=== PATIENT | male | born 1950 | race Caucasian/White ===

== ENCOUNTER 2020-03-20 22:00 | Inpatient (IN) | payer MEDICARE ==
[~2020-03-20] VITALS: Ht 177.8 cm; Wt 80.7 kg
[2020-03-21] VITALS (7 sets, daily range): BP systolic 118–141; BP diastolic 46–57
[2020-03-21] MEDS ORDERED: ALLOPURINOL100 MG PEG (02:25)
[2020-03-21] MEDS ORDERED: FERROUS SULFAT325 M1 PEG (02:36)
[2020-03-21] MEDS ORDERED: AMLODIPINE BESY10 MG PEG (02:36)
[2020-03-21] MEDS ORDERED: AMIODARONE HCL200 MG PEG (02:36)
[2020-03-21] MEDS ORDERED: ARANESP100 MCG/0. PEG (02:36)
[2020-03-21] MEDS ORDERED: ASPIRIN81 MG PEG (02:36)
[2020-03-21] MEDS ORDERED: ATORVASTATIN CA20 MG PEG (02:36)
[2020-03-21] MEDS ORDERED: PROTONIX20 MG PEG (02:44)
[2020-03-21] MEDS ORDERED: RENVELA0.8 GM PO (02:44)
[2020-03-21] MEDS ORDERED: FUROSEMIDE40 MG/4 ML IV (02:44)
[2020-03-21] MEDS ORDERED: MUPIROCIN22 GM TOP (02:44)
[2020-03-21] MEDS ORDERED: GABAPENTIN300 MG PEG (02:44)
[2020-03-21] MEDS ORDERED: GENTEAL TEARS 015 ML OU (02:44)
[2020-03-21] MEDS ORDERED: SERTRALINE HCL100 MG PEG (02:48)
[2020-03-21] MEDS ORDERED: VITAMIN B-121000 MCG PEG (02:48)
[2020-03-21] MEDS ORDERED: COMBIVENT RESPIM4 GM IH (02:48)
[2020-03-21] MEDS ORDERED: ACETYLCYST200 MG/1 M INH (02:48)
[2020-03-21] MEDS ORDERED: SANDOSTATIN0.1 MG/ML INJ (02:48)
[2020-03-21] MEDS ORDERED: OBREDON 2.5-20118 ML PO (02:55)
[2020-03-21] MEDS ORDERED: NORCO 5-325 TA1 EACH PEG (02:55)
[2020-03-21] MEDS ORDERED: ACETAMINOP325 MG/10 PEG (02:55)
[2020-03-21] MEDS ORDERED: MORPHINE S10 MG/1 M1 IV (02:58)
[2020-03-21] MEDS ORDERED: NITROSTAT0.4 MG SL (02:58)
[2020-03-21] MEDS ORDERED: ONDANSETRON2 MG/1 ML IV (02:58)
[2020-03-21] MEDS ORDERED: NITROGLYCERIN 0.4 MG SUBL SL SCH (03:45)
[2020-03-21] MEDS ORDERED: HYDROCODONE/APAP 5MG-325MG TAB PEG PRN (03:45)
[2020-03-21] MEDS ORDERED: DARBEPOETIN ALFA IN POLYSORBAT 100 MCG PEG SCH (03:45)
[2020-03-21] MEDS ORDERED: ACETAMINOPHEN 325 MG/10 ML UDC PEG PRN (03:45)
[2020-03-21] MEDS ORDERED: PANTOPRAZOLE SOD 40 MG TABEC PO SCH ×2 (03:45→04:15)
[2020-03-21] MEDS ORDERED: GUAIFENESIN/CODEINE 10 ML CUP PO PRN (03:45)
[2020-03-21] MEDS ORDERED: MORPHINE SULFATE INJ 4 MG/ML INJ 1ML IV PRN (04:00)
[2020-03-21] MEDS ORDERED: PROTONIX40 MG/ML PO (04:05)
[2020-03-21] MEDS: ONDANSETRON HCL INJ 2MG/ML 2ML 2 MG/ML VIAL IV SCH ×3 (05:33→17:44)
[2020-03-21] MEDS: IPRATROPIUM/ALBUTEROL SULFATE 4 GM INH INH SCH ×6 (06:00→23:15)
[2020-03-21] MEDS ORDERED: ACETYLCYSTEINE 20% INHAL SOLN 30 ML VIAL INH SCH (06:00)
[2020-03-21 06:55] LABS: BASOPHILS # (AUTO) 0.1 (0.0-0.1); BASOPHILS % 0.9 % (0.0-1.0); EOSINOPHILS % 33.4 % (0.0-6.0); HEMATOCRIT 22.7 % (38.2-49.6); LYMPHOCYTES # (AUTO) 0.7 (1.0-3.2); LYMPHOCYTES % 7.3 % (18.0-39.1); MEAN CORPUSCULAR HEMOGLOBIN 30.3 pg (28-32); MEAN CORPUSCULAR HGB CONC 30.4 g/dL (31-35); MEAN CORPUSCULAR VOLUME 99.6 fL (81-99); MONOCYTES # (AUTO) 0.5 (0.2-0.8); MONOCYTES % 5.9 % (4.4-11.3); NEUTROPHILS # (AUTO) 4.6 (2.1-6.9); PLATELET COUNT 197 x10e3/uL (140-360); RED BLOOD COUNT 2.28 x10e6/uL (4.3-5.7); RED CELL DISTRIBUTION WIDTH 18.3 % (11.7-14.4)
[2020-03-21 06:56] LABS: HEMOGLOBIN 6.9 g/dL (14.0-18.0)
[2020-03-21] MEDS: PANTOPRAZOLE SODIUM 40 MG SUSPDR.PKT PO SCH ×2 (07:22→22:23)
[2020-03-21] MEDS: SEVELAMER CARBONATE 800 MG TAB PO SCH ×3 (07:22→16:04)
[2020-03-21 07:24] LABS: ANION GAP 16.1 mmol/L (8-16); CALCIUM 8.6 mg/dL (8.4-10.2); CREATININE, SERUM 3.63 mg/dL (0.72-1.25); POTASSIUM 5.1 mmol/L (3.5-5.1)
[2020-03-21] MEDS ORDERED: SODIUM CHLORIDE 0.9% 250ML 250 ML IV SCH (07:30)
[2020-03-21] MEDS ORDERED: SEVELAMER CARBONATE 800 MG TAB PO SCH (08:00)
[2020-03-21] MEDS: GABAPENTIN 300 MG CAP PEG SCH (09:00)
[2020-03-21] MEDS: AMLODIPINE BESYLATE 10 MG TAB PEG SCH (09:00)
[2020-03-21] MEDS: FERROUS SULFATE 325 MG TAB PEG SCH ×2 (09:00→16:03)
[2020-03-21] MEDS: SERTRALINE HCL 100 MG TAB PEG SCH (09:00)
[2020-03-21] MEDS ORDERED: OCTREOTIDE ACETATE 0.1 MG/ML 100MCG AMP INJ SCH (09:00)
[2020-03-21] MEDS: CYANOCOBALAMIN 1,000 MCG TAB PEG SCH (09:00)
[2020-03-21] MEDS: ALLOPURINOL 100 MG TAB PEG SCH (09:00)
[2020-03-21] MEDS: MUPIROCIN 2% OINT 22 GM TUBE TOP SCH ×3 (09:00→16:23)
[2020-03-21] MEDS ORDERED: ASPIRIN 81 MG CHEW TAB PEG SCH (09:00)
[2020-03-21] MEDS: AMIODARONE HCL 200 MG TAB PEG SCH (09:00)
[2020-03-21 09:19] LABS: ANISOCYTOSIS SLIGHT; EOSINOPHILS % (MANUAL) 26 % (0-7); LYMPHOCYTES % (MANUAL) 9 % (19-48); MONOCYTES % (MANUAL) 6 % (3.4-9.0); NEUTROPHILS % (MANUAL) 59 % (40-74)
[2020-03-21 09:20] LABS: PLATELET ESTIMATE ADEQUATE; PLATELET MORPHOLOGY COMMENT NORMAL; RBC MORPHOLOGY COMMENT NORMAL
[2020-03-21] MEDS: FUROSEMIDE INJ 10 MG/ML 4 ML VIAL IV SCH ×2 (09:44→22:26)
[2020-03-21] MEDS: ARTIFICIAL TEARS (OPTH) 15 ML BTL OU SCH ×2 (09:53→17:34)
[2020-03-21] MEDS: OCTREOTIDE ACETATE 0.1 MG/ML 100MCG AMP SQ SCH ×2 (10:21→22:28)
[2020-03-21] MEDS: ACETYLCYSTEINE 200 MG/ML 4ML VIAL INH SCH ×2 (15:00→23:15)
[2020-03-21] MEDS ORDERED: SODIUM CHLORIDE 0.9% 250ML 500 ML IV PRN (16:00)
[2020-03-21] MEDS ORDERED: ALBUMIN 25% 12.5GM 0.25 GM/ML BTL IV PRN (16:00)
[2020-03-21] MEDS ORDERED: MANNITOL 25% 12.5GM/50 ML VIAL IV PRN (16:00)
[2020-03-21] MEDS ORDERED: SODIUM CHLORIDE 0.9% 1000ML 2,000 ML IV PRN (16:00)
[2020-03-21] MEDS: METOPROLOL TARTRATE 25 MG TAB PEG SCH (16:04)
[2020-03-21] MEDS ORDERED: EPOETIN ALFA-EPBX 10,000 UNIT/ML VIAL SC SCH (17:00)
[2020-03-21] MEDS: EPOETIN ALFA-EPBX 10,000 UNIT/ML VIAL SC SCH (17:34)
[2020-03-21] MEDS: ATORVASTATIN 20 MG TAB PEG SCH (22:23)
[2020-03-22] VITALS (8 sets, daily range): BP systolic 117–154; BP diastolic 50–57
[2020-03-22] MEDS: ONDANSETRON HCL INJ 2MG/ML 2ML 2 MG/ML VIAL IV SCH ×4 (00:55→18:12)
[2020-03-22] MEDS: ACETYLCYSTEINE 200 MG/ML 4ML VIAL INH SCH ×3 (06:56→23:00)
[2020-03-22] MEDS: IPRATROPIUM/ALBUTEROL SULFATE 4 GM INH INH SCH ×5 (06:56→19:30)
[2020-03-22] MEDS: PANTOPRAZOLE SODIUM 40 MG SUSPDR.PKT PO SCH ×2 (07:30→21:44)
[2020-03-22] MEDS: SEVELAMER CARBONATE 800 MG TAB PO SCH ×3 (08:00→18:11)
[2020-03-22] MEDS: OCTREOTIDE ACETATE 0.1 MG/ML 100MCG AMP SQ SCH ×2 (09:00→21:44)
[2020-03-22] MEDS: METOPROLOL TARTRATE 25 MG TAB PEG SCH ×2 (09:00→18:12)
[2020-03-22] MEDS: AMLODIPINE BESYLATE 10 MG TAB PEG SCH (09:00)
[2020-03-22] MEDS: FERROUS SULFATE 325 MG TAB PEG SCH (09:00)
[2020-03-22] MEDS: ALLOPURINOL 100 MG TAB PEG SCH (09:00)
[2020-03-22] MEDS: AMIODARONE HCL 200 MG TAB PEG SCH (09:00)
[2020-03-22] MEDS: FUROSEMIDE INJ 10 MG/ML 4 ML VIAL IV SCH ×2 (09:00→21:44)
[2020-03-22] MEDS: GABAPENTIN 300 MG CAP PEG SCH (09:00)
[2020-03-22] MEDS: SERTRALINE HCL 100 MG TAB PEG SCH (09:00)
[2020-03-22] MEDS: CYANOCOBALAMIN 1,000 MCG TAB PEG SCH (09:00)
[2020-03-22] MEDS: ARTIFICIAL TEARS (OPTH) 15 ML BTL OU SCH ×2 (10:37→17:00)
[2020-03-22 10:40] LABS: BASOPHILS # (AUTO) 0.1 (0.0-0.1); EOSINOPHILS # (AUTO) 1.9 (0.0-0.4); EOSINOPHILS % 25.8 % (0.0-6.0); HEMATOCRIT 26.2 % (38.2-49.6); HEMOGLOBIN 8.2 g/dL (14.0-18.0); LYMPHOCYTES # (AUTO) 0.5 (1.0-3.2); LYMPHOCYTES % 7.3 % (18.0-39.1); MEAN CORPUSCULAR HEMOGLOBIN 30.4 pg (28-32); MEAN CORPUSCULAR HGB CONC 31.3 g/dL (31-35); MONOCYTES # (AUTO) 0.6 (0.2-0.8); MONOCYTES % 8.7 % (4.4-11.3); NEUTROPHILS # (AUTO) 4.1 (2.1-6.9); NEUTROPHILS % 56.8 % (38.7-80.0); PLATELET COUNT 164 x10e3/uL (140-360); RED CELL DISTRIBUTION WIDTH 17.8 % (11.7-14.4)
[2020-03-22] MEDS: MUPIROCIN 2% OINT 22 GM TUBE TOP SCH ×2 (14:09→17:00)
[2020-03-22] MEDS: ATORVASTATIN 20 MG TAB PEG SCH (21:44)
[2020-03-23] VITALS (8 sets, daily range): BP systolic 109–128; BP diastolic 41–50
[2020-03-23] MEDS: ONDANSETRON HCL INJ 2MG/ML 2ML 2 MG/ML VIAL IV SCH ×4 (00:06→18:09)
[2020-03-23 06:35] LABS: BASOPHILS # (AUTO) 0.1 (0.0-0.1); BASOPHILS % 0.9 % (0.0-1.0); EOSINOPHILS # (AUTO) 1.8 (0.0-0.4); EOSINOPHILS % 25.4 % (0.0-6.0); HEMATOCRIT 27.4 % (38.2-49.6); HEMOGLOBIN 8.4 g/dL (14.0-18.0); LYMPHOCYTES # (AUTO) 0.7 (1.0-3.2); LYMPHOCYTES % 9.2 % (18.0-39.1); MEAN CORPUSCULAR HEMOGLOBIN 30.1 pg (28-32); MEAN CORPUSCULAR HGB CONC 30.7 g/dL (31-35); MEAN CORPUSCULAR VOLUME 98.2 fL (81-99); MONOCYTES # (AUTO) 0.6 (0.2-0.8); NEUTROPHILS % 56.1 % (38.7-80.0); PLATELET COUNT 170 x10e3/uL (140-360); RED BLOOD COUNT 2.79 x10e6/uL (4.3-5.7); RED CELL DISTRIBUTION WIDTH 17.5 % (11.7-14.4)
[2020-03-23] MEDS: IPRATROPIUM/ALBUTEROL SULFATE 4 GM INH INH SCH ×5 (06:55→23:10)
[2020-03-23 06:56] LABS: ANION GAP 14.5 mmol/L (8-16); CALCIUM 8.5 mg/dL (8.4-10.2); CREATININE, SERUM 3.57 mg/dL (0.72-1.25); POTASSIUM 4.5 mmol/L (3.5-5.1)
[2020-03-23] MEDS: ACETYLCYSTEINE 200 MG/ML 4ML VIAL INH SCH ×3 (06:58→23:00)
[2020-03-23] MEDS: PANTOPRAZOLE SODIUM 40 MG SUSPDR.PKT PO SCH ×2 (07:30→20:16)
[2020-03-23] MEDS: SEVELAMER CARBONATE 800 MG TAB PO SCH ×3 (08:00→17:18)
[2020-03-23] MEDS: AMLODIPINE BESYLATE 10 MG TAB PEG SCH (09:00)
[2020-03-23] MEDS: ARTIFICIAL TEARS (OPTH) 15 ML BTL OU SCH ×2 (09:00→17:18)
[2020-03-23] MEDS: AMIODARONE HCL 200 MG TAB PEG SCH (09:00)
[2020-03-23] MEDS: GABAPENTIN 300 MG CAP PEG SCH (09:00)
[2020-03-23] MEDS: MUPIROCIN 2% OINT 22 GM TUBE TOP SCH ×2 (09:00→17:53)
[2020-03-23] MEDS: ALLOPURINOL 100 MG TAB PEG SCH (09:00)
[2020-03-23] MEDS: CYANOCOBALAMIN 1,000 MCG TAB PEG SCH (09:00)
[2020-03-23] MEDS: SERTRALINE HCL 100 MG TAB PEG SCH (09:00)
[2020-03-23] MEDS: FUROSEMIDE INJ 10 MG/ML 4 ML VIAL IV SCH ×2 (09:00→20:16)
[2020-03-23] MEDS: METOPROLOL TARTRATE 25 MG TAB PEG SCH ×2 (09:00→17:18)
[2020-03-23] MEDS: OCTREOTIDE ACETATE 0.1 MG/ML 100MCG AMP SQ SCH ×2 (09:00→20:16)
[2020-03-23] MEDS ORDERED: DEXTROSE 5%/0.45% SOD CHL 1,000 ML IV ONE ×2 (15:00→18:00)
[2020-03-23] MEDS ORDERED: PEG (High)/E-LYTE SOLN 4,000 ML BTL PO ONE ×2 (16:00)
[2020-03-23] MEDS: ATORVASTATIN 20 MG TAB PEG SCH (20:16)
[2020-03-24] VITALS (10 sets, daily range): BP systolic 114–126; BP diastolic 35–84
[2020-03-24] MEDS: ONDANSETRON HCL INJ 2MG/ML 2ML 2 MG/ML VIAL IV SCH ×4 (00:06→18:00)
[2020-03-24] MEDS: IPRATROPIUM/ALBUTEROL SULFATE 4 GM INH INH SCH ×5 (03:07→22:00)
[2020-03-24] MEDS: ACETYLCYSTEINE 200 MG/ML 4ML VIAL INH SCH ×2 (07:00→15:00)
[2020-03-24] MEDS: PANTOPRAZOLE SODIUM 40 MG SUSPDR.PKT PO SCH ×2 (07:30→19:30)
[2020-03-24] MEDS: SEVELAMER CARBONATE 800 MG TAB PO SCH ×3 (08:00→17:00)
[2020-03-24] MEDS: FUROSEMIDE INJ 10 MG/ML 4 ML VIAL IV SCH ×2 (08:40→20:58)
[2020-03-24] MEDS: ALLOPURINOL 100 MG TAB PEG SCH (09:00)
[2020-03-24] MEDS: AMIODARONE HCL 200 MG TAB PEG SCH (09:00)
[2020-03-24] MEDS: MUPIROCIN 2% OINT 22 GM TUBE TOP SCH ×2 (09:00→17:00)
[2020-03-24] MEDS: GABAPENTIN 300 MG CAP PEG SCH (09:00)
[2020-03-24] MEDS: ARTIFICIAL TEARS (OPTH) 15 ML BTL OU SCH ×2 (09:00→17:00)
[2020-03-24] MEDS: OCTREOTIDE ACETATE 0.1 MG/ML 100MCG AMP SQ SCH ×2 (09:00→20:59)
[2020-03-24] MEDS: CYANOCOBALAMIN 1,000 MCG TAB PEG SCH (09:00)
[2020-03-24] MEDS: AMLODIPINE BESYLATE 10 MG TAB PEG SCH (09:00)
[2020-03-24] MEDS: SERTRALINE HCL 100 MG TAB PEG SCH (09:00)
[2020-03-24] MEDS: METOPROLOL TARTRATE 25 MG TAB PEG SCH ×2 (09:00→17:00)
[2020-03-24] MEDS ORDERED: PROPOFOL IV EMULSION 10 MG/ML 20 ML VIAL ONE (12:21)
[2020-03-24] MEDS ORDERED: SODIUM CHLORIDE 0.9% 500ML 500 ML ONE (14:37)
[2020-03-24] MEDS: EPOETIN ALFA-EPBX 10,000 UNIT/ML VIAL SC SCH (17:00)
[2020-03-24] MEDS ORDERED: SODIUM CHLORIDE 0.9% 1000ML 2,000 ML ONE (20:53)
[2020-03-24] MEDS: ATORVASTATIN 20 MG TAB PEG SCH (20:58)
[2020-03-25] VITALS (8 sets, daily range): BP systolic 132–138; BP diastolic 43–55
[2020-03-25] MEDS: FUROSEMIDE INJ 10 MG/ML 4 ML VIAL IV SCH ×3 (00:47→22:00)
[2020-03-25 04:56] LABS: BASOPHILS # (AUTO) 0.1 (0.0-0.1); BASOPHILS % 0.7 % (0.0-1.0); EOSINOPHILS # (AUTO) 2.4 (0.0-0.4); EOSINOPHILS % 28.2 % (0.0-6.0); HEMATOCRIT 24.8 % (38.2-49.6); HEMOGLOBIN 7.8 g/dL (14.0-18.0); LYMPHOCYTES # (AUTO) 0.5 (1.0-3.2); LYMPHOCYTES % 5.8 % (18.0-39.1); MEAN CORPUSCULAR HGB CONC 31.5 g/dL (31-35); MEAN CORPUSCULAR VOLUME 98.4 fL (81-99); MONOCYTES # (AUTO) 0.5 (0.2-0.8); MONOCYTES % 5.6 % (4.4-11.3); NEUTROPHILS # (AUTO) 5.1 (2.1-6.9); NEUTROPHILS % 59.2 % (38.7-80.0); PLATELET COUNT 180 x10e3/uL (140-360); RED BLOOD COUNT 2.52 x10e6/uL (4.3-5.7); RED CELL DISTRIBUTION WIDTH 17.3 % (11.7-14.4)
[2020-03-25 05:18] LABS: ANION GAP 15.5 mmol/L (8-16); CALCIUM 8.4 mg/dL (8.4-10.2); CREATININE, SERUM 4.5 mg/dL (0.72-1.25); PHOSPHORUS 5.1 MG/DL (2.3-4.7); POTASSIUM 4.5 mmol/L (3.5-5.1)
[2020-03-25] MEDS: ONDANSETRON HCL INJ 2MG/ML 2ML 2 MG/ML VIAL IV SCH ×4 (05:47→17:18)
[2020-03-25] MEDS: ALBUTEROL/IPRATROPIUM 3 ML NEB NEB SCH ×5 (07:30→23:05)
[2020-03-25] MEDS: ACETYLCYSTEINE 200 MG/ML 4ML VIAL INH SCH ×3 (07:30→23:05)
[2020-03-25] MEDS: PANTOPRAZOLE SODIUM 40 MG SUSPDR.PKT PO SCH ×2 (07:30→20:30)
[2020-03-25] MEDS ORDERED: ALBUTEROL/IPRATROPIUM 3 ML NEB ONE (07:34)
[2020-03-25] MEDS: SEVELAMER CARBONATE 800 MG TAB PO SCH ×3 (08:00→17:18)
[2020-03-25 08:56] LABS: EOSINOPHILS % (MANUAL) 24 % (0-7); LYMPHOCYTES % (MANUAL) 8 % (19-48); MONOCYTES % (MANUAL) 3 % (3.4-9.0); NEUTROPHILS % (MANUAL) 65 % (40-74)
[2020-03-25] MEDS: METOPROLOL TARTRATE 25 MG TAB PEG SCH ×2 (09:00→17:00)
[2020-03-25] MEDS: CYANOCOBALAMIN 1,000 MCG TAB PEG SCH (09:00)
[2020-03-25] MEDS: AMLODIPINE BESYLATE 10 MG TAB PEG SCH (09:00)
[2020-03-25] MEDS: AMIODARONE HCL 200 MG TAB PEG SCH (09:00)
[2020-03-25] MEDS: OCTREOTIDE ACETATE 0.1 MG/ML 100MCG AMP SQ SCH ×2 (09:00→21:00)
[2020-03-25] MEDS: ALLOPURINOL 100 MG TAB PEG SCH (09:00)
[2020-03-25] MEDS: ARTIFICIAL TEARS (OPTH) 15 ML BTL OU SCH ×2 (09:00→17:17)
[2020-03-25] MEDS: SERTRALINE HCL 100 MG TAB PEG SCH (09:00)
[2020-03-25] MEDS: GABAPENTIN 300 MG CAP PEG SCH (09:00)
[2020-03-25 09:01] LABS: ANISOCYTOSIS SLIGHT; PLATELET ESTIMATE ADEQUATE; PLATELET MORPHOLOGY COMMENT NORMAL; POLYCHROMASIA FEW; RBC MORPHOLOGY COMMENT NORMAL
[2020-03-25] MEDS ORDERED: SODIUM CHLORIDE 0.9% 250ML 250 ML IV ONE (09:15)
[2020-03-25] MEDS: MUPIROCIN 2% OINT 22 GM TUBE TOP SCH ×2 (13:14→17:18)
[2020-03-25] MEDS: ATORVASTATIN 20 MG TAB PEG SCH (22:00)
[2020-03-25] MEDS ORDERED: SODIUM CHLORIDE 0.9% 250ML 250 ML ONE (23:52)
[2020-03-26] VITALS (7 sets, daily range): BP systolic 134–160; BP diastolic 48–65
[2020-03-26] MEDS ORDERED: SODIUM CHLORIDE 0.9% 250ML 250 ML ONE (02:42)
[2020-03-26] MEDS: ALBUTEROL/IPRATROPIUM 3 ML NEB NEB SCH ×6 (03:30→23:00)
[2020-03-26] MEDS: ONDANSETRON HCL INJ 2MG/ML 2ML 2 MG/ML VIAL IV SCH ×6 (06:00→23:33)
[2020-03-26 07:40] LABS: BASOPHILS % 0.5 % (0.0-1.0); EOSINOPHILS # (AUTO) 1.6 (0.0-0.4); EOSINOPHILS % 19.7 % (0.0-6.0); HEMATOCRIT 33.9 % (38.2-49.6); HEMOGLOBIN 10.7 g/dL (14.0-18.0); LYMPHOCYTES # (AUTO) 0.5 (1.0-3.2); LYMPHOCYTES % 6.2 % (18.0-39.1); MEAN CORPUSCULAR HEMOGLOBIN 28.9 pg (28-32); MEAN CORPUSCULAR HGB CONC 31.6 g/dL (31-35); MEAN CORPUSCULAR VOLUME 91.6 fL (81-99); MONOCYTES # (AUTO) 0.6 (0.2-0.8); MONOCYTES % 6.6 % (4.4-11.3); NEUTROPHILS # (AUTO) 5.6 (2.1-6.9); NEUTROPHILS % 66.6 % (38.7-80.0); PLATELET COUNT 155 x10e3/uL (140-360); RED CELL DISTRIBUTION WIDTH 18.6 % (11.7-14.4)
[2020-03-26] MEDS: ACETYLCYSTEINE 200 MG/ML 4ML VIAL INH SCH ×3 (08:27→23:51)
[2020-03-26] MEDS: OCTREOTIDE ACETATE 0.1 MG/ML 100MCG AMP SQ SCH ×2 (09:00→23:19)
[2020-03-26] MEDS: MUPIROCIN 2% OINT 22 GM TUBE TOP SCH ×2 (09:00→17:00)
[2020-03-26] MEDS: AMIODARONE HCL 200 MG TAB PEG SCH (09:55)
[2020-03-26] MEDS: FUROSEMIDE INJ 10 MG/ML 4 ML VIAL IV SCH ×2 (09:55→22:28)
[2020-03-26] MEDS: METOPROLOL TARTRATE 25 MG TAB PEG SCH ×2 (09:55→16:33)
[2020-03-26] MEDS: ARTIFICIAL TEARS (OPTH) 15 ML BTL OU SCH ×2 (09:55→17:00)
[2020-03-26] MEDS: SEVELAMER CARBONATE 800 MG TAB PO SCH ×3 (09:55→17:46)
[2020-03-26] MEDS: GABAPENTIN 300 MG CAP PEG SCH (09:55)
[2020-03-26] MEDS: PANTOPRAZOLE SODIUM 40 MG SUSPDR.PKT PO SCH ×2 (09:55→22:28)
[2020-03-26] MEDS: ALLOPURINOL 100 MG TAB PEG SCH (09:56)
[2020-03-26] MEDS: CYANOCOBALAMIN 1,000 MCG TAB PEG SCH (09:56)
[2020-03-26] MEDS: AMLODIPINE BESYLATE 10 MG TAB PEG SCH (09:56)
[2020-03-26] MEDS: SERTRALINE HCL 100 MG TAB PEG SCH (09:56)
[2020-03-26] MEDS: EPOETIN ALFA-EPBX 10,000 UNIT/ML VIAL SC SCH (16:34)
[2020-03-26] MEDS: ATORVASTATIN 20 MG TAB PEG SCH (22:28)
[2020-03-27] VITALS (8 sets, daily range): BP systolic 106–141; BP diastolic 47–86
[2020-03-27] MEDS: ALBUTEROL/IPRATROPIUM 3 ML NEB NEB SCH ×6 (03:00→23:10)
[2020-03-27] MEDS: ONDANSETRON HCL INJ 2MG/ML 2ML 2 MG/ML VIAL IV SCH ×3 (06:10→17:35)
[2020-03-27] MEDS: PANTOPRAZOLE SODIUM 40 MG SUSPDR.PKT PO SCH ×2 (07:30→21:21)
[2020-03-27] MEDS: ACETYLCYSTEINE 200 MG/ML 4ML VIAL INH SCH ×3 (07:55→23:10)
[2020-03-27] MEDS: SEVELAMER CARBONATE 800 MG TAB PO SCH ×3 (08:00→18:01)
[2020-03-27] MEDS: ARTIFICIAL TEARS (OPTH) 15 ML BTL OU SCH ×2 (09:00→18:01)
[2020-03-27] MEDS: OCTREOTIDE ACETATE 0.1 MG/ML 100MCG AMP SQ SCH ×2 (09:00→21:21)
[2020-03-27] MEDS: MUPIROCIN 2% OINT 22 GM TUBE TOP SCH ×2 (09:00→18:01)
[2020-03-27] MEDS: FUROSEMIDE INJ 10 MG/ML 4 ML VIAL IV SCH ×2 (09:00→21:00)
[2020-03-27] MEDS: AMLODIPINE BESYLATE 10 MG TAB PEG SCH (09:00)
[2020-03-27] MEDS: METOPROLOL TARTRATE 25 MG TAB PEG SCH ×2 (09:00→17:00)
[2020-03-27] MEDS: EPOETIN ALFA-EPBX 10,000 UNIT/ML VIAL SC SCH (18:00)
[2020-03-27] MEDS: CYANOCOBALAMIN 1,000 MCG TAB PEG SCH (18:01)
[2020-03-27] MEDS: AMIODARONE HCL 200 MG TAB PEG SCH (18:01)
[2020-03-27] MEDS: SERTRALINE HCL 100 MG TAB PEG SCH (18:01)
[2020-03-27] MEDS: GABAPENTIN 300 MG CAP PEG SCH (18:01)
[2020-03-27] MEDS: ALLOPURINOL 100 MG TAB PEG SCH (18:01)
[2020-03-27] MEDS: ATORVASTATIN 20 MG TAB PEG SCH (21:21)
[2020-03-28] VITALS (8 sets, daily range): BP systolic 112–137; BP diastolic 49–80
[2020-03-28] MEDS: ONDANSETRON HCL INJ 2MG/ML 2ML 2 MG/ML VIAL IV SCH ×4 (01:14→17:30)
[2020-03-28] MEDS: ALBUTEROL/IPRATROPIUM 3 ML NEB NEB SCH ×6 (03:35→23:47)
[2020-03-28] MEDS: PANTOPRAZOLE SODIUM 40 MG SUSPDR.PKT PO SCH ×2 (07:30→21:00)
[2020-03-28] MEDS: ACETYLCYSTEINE 200 MG/ML 4ML VIAL INH SCH (07:34)
[2020-03-28] MEDS: SEVELAMER CARBONATE 800 MG TAB PO SCH ×3 (08:00→17:00)
[2020-03-28] MEDS: OCTREOTIDE ACETATE 0.1 MG/ML 100MCG AMP SQ SCH ×2 (09:00→21:00)
[2020-03-28] MEDS: AMLODIPINE BESYLATE 10 MG TAB PEG SCH (09:00)
[2020-03-28] MEDS: ARTIFICIAL TEARS (OPTH) 15 ML BTL OU SCH ×2 (09:00→17:00)
[2020-03-28] MEDS: ALLOPURINOL 100 MG TAB PEG SCH (09:00)
[2020-03-28] MEDS: METOPROLOL TARTRATE 25 MG TAB PEG SCH ×2 (09:00→17:00)
[2020-03-28] MEDS: AMIODARONE HCL 200 MG TAB PEG SCH (09:00)
[2020-03-28] MEDS: FUROSEMIDE INJ 10 MG/ML 4 ML VIAL IV SCH ×2 (09:00→21:00)
[2020-03-28] MEDS: CYANOCOBALAMIN 1,000 MCG TAB PEG SCH (09:00)
[2020-03-28] MEDS: GABAPENTIN 300 MG CAP PEG SCH (09:00)
[2020-03-28] MEDS: SERTRALINE HCL 100 MG TAB PEG SCH (09:00)
[2020-03-28] MEDS: ATORVASTATIN 20 MG TAB PEG SCH (21:00)
[2020-03-29] VITALS (8 sets, daily range): BP systolic 97–140; BP diastolic 39–56
[2020-03-29] MEDS: ONDANSETRON HCL INJ 2MG/ML 2ML 2 MG/ML VIAL IV SCH ×4 (00:30→17:13)
[2020-03-29] MEDS: ALBUTEROL/IPRATROPIUM 3 ML NEB NEB SCH ×6 (00:30→19:55)
[2020-03-29 06:08] LABS: BASOPHILS # (AUTO) 0.1 (0.0-0.1); BASOPHILS % 0.6 % (0.0-1.0); EOSINOPHILS # (AUTO) 2.7 (0.0-0.4); EOSINOPHILS % 28.7 % (0.0-6.0); HEMATOCRIT 34.7 % (38.2-49.6); HEMOGLOBIN 10.4 g/dL (14.0-18.0); LYMPHOCYTES # (AUTO) 0.4 (1.0-3.2); LYMPHOCYTES % 4.3 % (18.0-39.1); MEAN CORPUSCULAR HEMOGLOBIN 29.1 pg (28-32); MEAN CORPUSCULAR VOLUME 97.2 fL (81-99); MONOCYTES # (AUTO) 0.4 (0.2-0.8); MONOCYTES % 4.2 % (4.4-11.3); NEUTROPHILS # (AUTO) 5.9 (2.1-6.9); NEUTROPHILS % 61.9 % (38.7-80.0); PLATELET COUNT 138 x10e3/uL (140-360); RED BLOOD COUNT 3.57 x10e6/uL (4.3-5.7); RED CELL DISTRIBUTION WIDTH 18.2 % (11.7-14.4)
[2020-03-29 06:35] LABS: ALBUMIN 2.6 g/dL (3.5-5.0); ALBUMIN/GLOBULIN RATIO 0.6 (0.8-2.0); ANION GAP 12.5 mmol/L (8-16); CALCIUM 8.8 mg/dL (8.4-10.2); CREATININE, SERUM 3.43 mg/dL (0.72-1.25); POTASSIUM 4.5 mmol/L (3.5-5.1)
[2020-03-29] MEDS: PANTOPRAZOLE SODIUM 40 MG SUSPDR.PKT PO SCH ×2 (07:30→21:24)
[2020-03-29] MEDS: SEVELAMER CARBONATE 800 MG TAB PO SCH ×3 (08:00→16:24)
[2020-03-29] MEDS: AMIODARONE HCL 200 MG TAB PEG SCH (08:50)
[2020-03-29] MEDS: METOPROLOL TARTRATE 25 MG TAB PEG SCH ×2 (08:50→16:23)
[2020-03-29] MEDS: ARTIFICIAL TEARS (OPTH) 15 ML BTL OU SCH ×2 (08:50→16:23)
[2020-03-29] MEDS: FUROSEMIDE INJ 10 MG/ML 4 ML VIAL IV SCH (08:50)
[2020-03-29] MEDS: GABAPENTIN 300 MG CAP PEG SCH (08:50)
[2020-03-29] MEDS: AMLODIPINE BESYLATE 10 MG TAB PEG SCH ×2 (08:50→08:52)
[2020-03-29] MEDS: OCTREOTIDE ACETATE 0.1 MG/ML 100MCG AMP SQ SCH ×2 (08:51→21:24)
[2020-03-29] MEDS: CYANOCOBALAMIN 1,000 MCG TAB PEG SCH (08:51)
[2020-03-29] MEDS: ALLOPURINOL 100 MG TAB PEG SCH (08:51)
[2020-03-29] MEDS: SERTRALINE HCL 100 MG TAB PEG SCH (08:51)
[2020-03-29] MEDS ORDERED: CEFEPIME HCL 1 GM VIAL IV SCH (09:30)
[2020-03-29] MEDS ORDERED: CEFEPIME 1GM/NS 0.9% 50 ML 50 ML IV SCH (10:00)
[2020-03-29] MEDS ORDERED: SODIUM CHLORIDE 0.9% 250ML 250 ML ONE (14:58)
[2020-03-29] MEDS: CEFEPIME 1GM/NS 0.9% 50 ML 50 ML IV SCH (15:36)
[2020-03-29] MEDS: ATORVASTATIN 20 MG TAB PEG SCH (21:24)
[2020-03-30] VITALS (9 sets, daily range): BP systolic 122–154; BP diastolic 49–68
[2020-03-30] MEDS: ALBUTEROL/IPRATROPIUM 3 ML NEB NEB SCH ×6 (01:00→19:13)
[2020-03-30] MEDS: ONDANSETRON HCL INJ 2MG/ML 2ML 2 MG/ML VIAL IV SCH ×4 (05:47→17:04)
[2020-03-30] MEDS: PANTOPRAZOLE SODIUM 40 MG SUSPDR.PKT PO SCH ×2 (07:30→21:17)
[2020-03-30] MEDS: SEVELAMER CARBONATE 800 MG TAB PO SCH ×3 (08:00→17:00)
[2020-03-30] MEDS: OCTREOTIDE ACETATE 0.1 MG/ML 100MCG AMP SQ SCH ×2 (09:00→21:17)
[2020-03-30] MEDS: METOPROLOL TARTRATE 25 MG TAB PEG SCH ×2 (09:00→17:00)
[2020-03-30] MEDS: ALLOPURINOL 100 MG TAB PEG SCH (09:00)
[2020-03-30] MEDS: GABAPENTIN 300 MG CAP PEG SCH (09:00)
[2020-03-30] MEDS: CLOPIDOGREL BISULFATE 75 MG TAB PO SCH (09:00)
[2020-03-30] MEDS: ARTIFICIAL TEARS (OPTH) 15 ML BTL OU SCH ×2 (09:00→17:00)
[2020-03-30] MEDS: AMLODIPINE BESYLATE 10 MG TAB PEG SCH (09:00)
[2020-03-30] MEDS: SERTRALINE HCL 100 MG TAB PEG SCH (09:00)
[2020-03-30] MEDS: AMIODARONE HCL 200 MG TAB PEG SCH (09:00)
[2020-03-30] MEDS: CYANOCOBALAMIN 1,000 MCG TAB PEG SCH (09:00)
[2020-03-30 11:11] LABS: BASOPHILS # (AUTO) 0.1 (0.0-0.1); BASOPHILS % 0.6 % (0.0-1.0); EOSINOPHILS # (AUTO) 2.8 (0.0-0.4); EOSINOPHILS % 28.3 % (0.0-6.0); HEMATOCRIT 33.9 % (38.2-49.6); HEMOGLOBIN 10.2 g/dL (14.0-18.0); LYMPHOCYTES # (AUTO) 0.6 (1.0-3.2); LYMPHOCYTES % 6.4 % (18.0-39.1); MEAN CORPUSCULAR HEMOGLOBIN 29.2 pg (28-32); MEAN CORPUSCULAR HGB CONC 30.1 g/dL (31-35); MEAN CORPUSCULAR VOLUME 97.1 fL (81-99); MONOCYTES # (AUTO) 0.4 (0.2-0.8); MONOCYTES % 4.2 % (4.4-11.3); NEUTROPHILS % 60.2 % (38.7-80.0); PLATELET COUNT 148 x10e3/uL (140-360); RED BLOOD COUNT 3.49 x10e6/uL (4.3-5.7); RED CELL DISTRIBUTION WIDTH 18.4 % (11.7-14.4)
[2020-03-30 11:34] LABS: ANION GAP 14.4 mmol/L (8-16); CALCIUM 8.8 mg/dL (8.4-10.2); CREATININE, SERUM 2.83 mg/dL (0.72-1.25); POTASSIUM 4.4 mmol/L (3.5-5.1)
[2020-03-30] MEDS: CEFEPIME 1GM/NS 0.9% 50 ML 50 ML IV SCH (16:00)
[2020-03-30] MEDS: ATORVASTATIN 20 MG TAB PEG SCH (21:17)
[2020-03-31] VITALS (7 sets, daily range): BP systolic 100–140; BP diastolic 47–53
[2020-03-31] MEDS: ALBUTEROL/IPRATROPIUM 3 ML NEB NEB SCH ×6 (04:30→23:30)
[2020-03-31 05:20] LABS: BASOPHILS # (AUTO) 0.1 (0.0-0.1); BASOPHILS % 0.5 % (0.0-1.0); EOSINOPHILS # (AUTO) 2.8 (0.0-0.4); EOSINOPHILS % 27.1 % (0.0-6.0); HEMATOCRIT 32.7 % (38.2-49.6); LYMPHOCYTES # (AUTO) 0.5 (1.0-3.2); LYMPHOCYTES % 4.5 % (18.0-39.1); MEAN CORPUSCULAR HEMOGLOBIN 29.4 pg (28-32); MEAN CORPUSCULAR HGB CONC 30.6 g/dL (31-35); MEAN CORPUSCULAR VOLUME 96.2 fL (81-99); MONOCYTES # (AUTO) 0.4 (0.2-0.8); MONOCYTES % 4.3 % (4.4-11.3); NEUTROPHILS # (AUTO) 6.5 (2.1-6.9); NEUTROPHILS % 63.3 % (38.7-80.0); PLATELET COUNT 141 x10e3/uL (140-360); RED CELL DISTRIBUTION WIDTH 18.1 % (11.7-14.4)
[2020-03-31] MEDS: ONDANSETRON HCL INJ 2MG/ML 2ML 2 MG/ML VIAL IV SCH ×5 (05:22→23:51)
[2020-03-31 05:51] LABS: ALBUMIN 2.9 g/dL (3.5-5.0); ALBUMIN/GLOBULIN RATIO 0.7 (0.8-2.0); ANION GAP 14.6 mmol/L (8-16); CALCIUM 8.8 mg/dL (8.4-10.2); CREATININE, SERUM 3.46 mg/dL (0.72-1.25); POTASSIUM 4.6 mmol/L (3.5-5.1)
[2020-03-31] MEDS: METOPROLOL TARTRATE 25 MG TAB PEG SCH ×2 (09:00→16:37)
[2020-03-31] MEDS: ALLOPURINOL 100 MG TAB PEG SCH (09:45)
[2020-03-31] MEDS: SERTRALINE HCL 100 MG TAB PEG SCH (09:45)
[2020-03-31] MEDS: CYANOCOBALAMIN 1,000 MCG TAB PEG SCH (09:45)
[2020-03-31] MEDS: OCTREOTIDE ACETATE 0.1 MG/ML 100MCG AMP SQ SCH ×2 (09:45→21:00)
[2020-03-31] MEDS: AMIODARONE HCL 200 MG TAB PEG SCH (09:45)
[2020-03-31] MEDS: SEVELAMER CARBONATE 800 MG TAB PO SCH ×3 (09:45→16:37)
[2020-03-31] MEDS: CLOPIDOGREL BISULFATE 75 MG TAB PO SCH (09:45)
[2020-03-31] MEDS: PANTOPRAZOLE SODIUM 40 MG SUSPDR.PKT PO SCH ×2 (09:45→19:30)
[2020-03-31] MEDS: ARTIFICIAL TEARS (OPTH) 15 ML BTL OU SCH ×2 (09:45→16:36)
[2020-03-31] MEDS: AMLODIPINE BESYLATE 10 MG TAB PEG SCH (16:36)
[2020-03-31] MEDS: CEFEPIME 1GM/NS 0.9% 50 ML 50 ML IV SCH (16:36)
[2020-03-31] MEDS: ATORVASTATIN 20 MG TAB PEG SCH (21:00)
[2020-04-01] VITALS (8 sets, daily range): BP systolic 112–148; BP diastolic 41–60
[2020-04-01] MEDS: ALBUTEROL/IPRATROPIUM 3 ML NEB NEB SCH ×6 (02:50→23:40)
[2020-04-01] MEDS: ONDANSETRON HCL INJ 2MG/ML 2ML 2 MG/ML VIAL IV SCH ×4 (06:00→23:53)
[2020-04-01] MEDS: PANTOPRAZOLE SODIUM 40 MG SUSPDR.PKT PO SCH ×2 (07:30→20:00)
[2020-04-01] MEDS: SEVELAMER CARBONATE 800 MG TAB PO SCH ×3 (08:00→16:06)
[2020-04-01] MEDS: SERTRALINE HCL 100 MG TAB PEG SCH (09:00)
[2020-04-01] MEDS: CLOPIDOGREL BISULFATE 75 MG TAB PO SCH (09:00)
[2020-04-01] MEDS: CYANOCOBALAMIN 1,000 MCG TAB PEG SCH (09:00)
[2020-04-01] MEDS: ARTIFICIAL TEARS (OPTH) 15 ML BTL OU SCH ×2 (09:00→16:06)
[2020-04-01] MEDS: ALLOPURINOL 100 MG TAB PEG SCH (09:00)
[2020-04-01] MEDS: METOPROLOL TARTRATE 25 MG TAB PEG SCH ×2 (09:00→17:57)
[2020-04-01] MEDS: AMIODARONE HCL 200 MG TAB PEG SCH (09:00)
[2020-04-01] MEDS: OCTREOTIDE ACETATE 0.1 MG/ML 100MCG AMP SQ SCH ×2 (09:00→20:39)
[2020-04-01] MEDS: AMLODIPINE BESYLATE 10 MG TAB PEG SCH (09:00)
[2020-04-01] MEDS: CEFEPIME 1GM/NS 0.9% 50 ML 50 ML IV SCH (16:06)
[2020-04-01] MEDS: ATORVASTATIN 20 MG TAB PEG SCH (20:39)
[2020-04-02] VITALS (8 sets, daily range): BP systolic 104–153; BP diastolic 47–58
[2020-04-02] MEDS: ALBUTEROL/IPRATROPIUM 3 ML NEB NEB SCH ×6 (03:10→23:10)
[2020-04-02] MEDS: ONDANSETRON HCL INJ 2MG/ML 2ML 2 MG/ML VIAL IV SCH ×4 (06:00→23:20)
[2020-04-02] MEDS: SEVELAMER CARBONATE 800 MG TAB PO SCH ×3 (07:04→16:16)
[2020-04-02] MEDS: AMLODIPINE BESYLATE 10 MG TAB PEG SCH (08:40)
[2020-04-02] MEDS: PANTOPRAZOLE SODIUM 40 MG SUSPDR.PKT PO SCH ×2 (08:40→20:00)
[2020-04-02] MEDS: ALLOPURINOL 100 MG TAB PEG SCH (08:40)
[2020-04-02] MEDS: OCTREOTIDE ACETATE 0.1 MG/ML 100MCG AMP SQ SCH ×2 (08:40→21:45)
[2020-04-02] MEDS: CYANOCOBALAMIN 1,000 MCG TAB PEG SCH (08:40)
[2020-04-02] MEDS: METOPROLOL TARTRATE 25 MG TAB PEG SCH ×2 (08:40→16:19)
[2020-04-02] MEDS: SERTRALINE HCL 100 MG TAB PEG SCH (08:40)
[2020-04-02] MEDS: ARTIFICIAL TEARS (OPTH) 15 ML BTL OU SCH ×2 (08:40→16:19)
[2020-04-02] MEDS: CLOPIDOGREL BISULFATE 75 MG TAB PO SCH (08:40)
[2020-04-02] MEDS: AMIODARONE HCL 200 MG TAB PEG SCH (08:40)
[2020-04-02] MEDS: SCOPOLAMINE 1.5 MG PATCH TOP SCH (10:41)
[2020-04-02] MEDS: CEFEPIME 1GM/NS 0.9% 50 ML 50 ML IV SCH (16:19)
[2020-04-02] MEDS: ATORVASTATIN 20 MG TAB PEG SCH (21:45)
[2020-04-02 22:10] LABS: HEMATOCRIT 23.7 % (38.2-49.6); HEMOGLOBIN 7.2 g/dL (14.0-18.0)
[2020-04-02] MEDS ORDERED: SODIUM CHLORIDE 0.9% 250ML 250 ML IV ONE (22:45)
[2020-04-03] VITALS (8 sets, daily range): BP systolic 84–137; BP diastolic 32–54
[2020-04-03] MEDS: ALBUTEROL/IPRATROPIUM 3 ML NEB NEB SCH ×6 (03:00→23:20)
[2020-04-03] MEDS: ONDANSETRON HCL INJ 2MG/ML 2ML 2 MG/ML VIAL IV SCH ×3 (05:57→18:00)
[2020-04-03 07:04] LABS: HEMATOCRIT 26.4 % (38.2-49.6); HEMOGLOBIN 8.1 g/dL (14.0-18.0)
[2020-04-03] MEDS: OCTREOTIDE ACETATE 0.1 MG/ML 100MCG AMP SQ SCH ×2 (10:17→21:00)
[2020-04-03] MEDS: ARTIFICIAL TEARS (OPTH) 15 ML BTL OU SCH ×2 (10:18→17:00)
[2020-04-03 11:05] LABS: HEMATOCRIT 24.6 % (38.2-49.6); HEMOGLOBIN 7.6 g/dL (14.0-18.0)
[2020-04-03] MEDS: SEVELAMER CARBONATE 800 MG TAB PO SCH ×3 (11:45→17:00)
[2020-04-03] MEDS: PANTOPRAZOLE SODIUM 40 MG SUSPDR.PKT PO SCH ×2 (11:45→19:30)
[2020-04-03] MEDS: CYANOCOBALAMIN 1,000 MCG TAB PEG SCH (11:46)
[2020-04-03] MEDS: SERTRALINE HCL 100 MG TAB PEG SCH (11:46)
[2020-04-03] MEDS: ALLOPURINOL 100 MG TAB PEG SCH (11:46)
[2020-04-03] MEDS: AMLODIPINE BESYLATE 10 MG TAB PEG SCH (11:55)
[2020-04-03] MEDS: AMIODARONE HCL 200 MG TAB PEG SCH (11:56)
[2020-04-03] MEDS: METOPROLOL TARTRATE 25 MG TAB PEG SCH ×2 (11:56→17:00)
[2020-04-03] MEDS ORDERED: IOPAMIDOL 370 MG/ML 200 ML INFUS..BTL INJ ONE ×2 (13:30→18:10)
[2020-04-03] MEDS ORDERED: SODIUM CHLORIDE 0.9% 100 ML ONE (13:30)
[2020-04-03 16:21] LABS: BASOPHILS % 0.5 % (0.0-1.0); EOSINOPHILS # (AUTO) 1.4 (0.0-0.4); EOSINOPHILS % 18.7 % (0.0-6.0); LYMPHOCYTES # (AUTO) 0.6 (1.0-3.2); LYMPHOCYTES % 7.7 % (18.0-39.1); MEAN CORPUSCULAR HEMOGLOBIN 28.7 pg (28-32); MEAN CORPUSCULAR HGB CONC 30.2 g/dL (31-35); MEAN CORPUSCULAR VOLUME 95.2 fL (81-99); MONOCYTES # (AUTO) 0.5 (0.2-0.8); MONOCYTES % 6.4 % (4.4-11.3); NEUTROPHILS % 66.4 % (38.7-80.0); PLATELET COUNT 140 x10e3/uL (140-360); RED BLOOD COUNT 2.09 x10e6/uL (4.3-5.7); RED CELL DISTRIBUTION WIDTH 17.5 % (11.7-14.4)
[2020-04-03 16:23] LABS: HEMATOCRIT 19.9 % (38.2-49.6)
[2020-04-03] MEDS ORDERED: SODIUM CHLORIDE 0.9% 250ML 250 ML IV ONE (16:50)
[2020-04-03] MEDS ORDERED: LIDOCAINE HCL 2% LOCAL 20 ML VIAL ONE (16:51)
[2020-04-03] MEDS ORDERED: HEPARIN SOD/SOD CHLORIDE 1,000 ML ONE (16:51)
[2020-04-03] MEDS ORDERED: IOPAMIDOL 300MG/ML 100 ML INFUS..BTL IV ONE (16:52)
[2020-04-03] MEDS ORDERED: SODIUM CHLORIDE 0.45% 1,000 ML IV SCH (17:00)
[2020-04-03] MEDS ORDERED: SODIUM CHLORIDE 0.9% 250ML 250 ML ONE ×3 (17:41→21:49)
[2020-04-03] MEDS: CEFEPIME 1GM/NS 0.9% 50 ML 50 ML IV SCH (20:17)
[2020-04-03 20:50] LABS: BASOPHILS % 0.6 % (0.0-1.0); EOSINOPHILS # (AUTO) 0.6 (0.0-0.4); EOSINOPHILS % 9.6 % (0.0-6.0); HEMATOCRIT 21.2 % (38.2-49.6); LYMPHOCYTES # (AUTO) 0.5 (1.0-3.2); LYMPHOCYTES % 7.3 % (18.0-39.1); MEAN CORPUSCULAR HEMOGLOBIN 29.2 pg (28-32); MEAN CORPUSCULAR HGB CONC 31.1 g/dL (31-35); MEAN CORPUSCULAR VOLUME 93.8 fL (81-99); MONOCYTES # (AUTO) 0.4 (0.2-0.8); MONOCYTES % 5.9 % (4.4-11.3); NEUTROPHILS # (AUTO) 4.9 (2.1-6.9); NEUTROPHILS % 76.1 % (38.7-80.0); PLATELET COUNT 123 x10e3/uL (140-360); RED BLOOD COUNT 2.26 x10e6/uL (4.3-5.7)
[2020-04-03 20:53] LABS: HEMOGLOBIN 6.6 g/dL (14.0-18.0)
[2020-04-03] MEDS: ATORVASTATIN 20 MG TAB PEG SCH (21:00)
[2020-04-04] VITALS: BP 105/46
[2020-04-04] MEDS: ALBUTEROL/IPRATROPIUM 3 ML NEB NEB SCH ×6 (02:27→23:30)
[2020-04-04 03:45] LABS: BASOPHILS % 0.7 % (0.0-1.0); EOSINOPHILS # (AUTO) 0.4 (0.0-0.4); EOSINOPHILS % 7.4 % (0.0-6.0); HEMATOCRIT 24.2 % (38.2-49.6); HEMOGLOBIN 7.6 g/dL (14.0-18.0); LYMPHOCYTES # (AUTO) 0.4 (1.0-3.2); LYMPHOCYTES % 7.5 % (18.0-39.1); MEAN CORPUSCULAR HEMOGLOBIN 29.8 pg (28-32); MEAN CORPUSCULAR HGB CONC 31.4 g/dL (31-35); MEAN CORPUSCULAR VOLUME 94.9 fL (81-99); MONOCYTES # (AUTO) 0.5 (0.2-0.8); MONOCYTES % 7.7 % (4.4-11.3); NEUTROPHILS # (AUTO) 4.5 (2.1-6.9); NEUTROPHILS % 76.2 % (38.7-80.0); PLATELET COUNT 122 x10e3/uL (140-360); RED BLOOD COUNT 2.55 x10e6/uL (4.3-5.7); RED CELL DISTRIBUTION WIDTH 16.9 % (11.7-14.4)
[2020-04-04] MEDS: ONDANSETRON HCL INJ 2MG/ML 2ML 2 MG/ML VIAL IV SCH ×4 (05:18→16:36)
[2020-04-04 05:29] LABS: BASOPHILS % 0.7 % (0.0-1.0); EOSINOPHILS # (AUTO) 0.5 (0.0-0.4); EOSINOPHILS % 7.9 % (0.0-6.0); HEMATOCRIT 23.5 % (38.2-49.6); HEMOGLOBIN 7.4 g/dL (14.0-18.0); LYMPHOCYTES # (AUTO) 0.5 (1.0-3.2); LYMPHOCYTES % 7.9 % (18.0-39.1); MEAN CORPUSCULAR HEMOGLOBIN 29.7 pg (28-32); MEAN CORPUSCULAR HGB CONC 31.5 g/dL (31-35); MEAN CORPUSCULAR VOLUME 94.4 fL (81-99); MONOCYTES # (AUTO) 0.4 (0.2-0.8); MONOCYTES % 6.9 % (4.4-11.3); NEUTROPHILS # (AUTO) 4.5 (2.1-6.9); NEUTROPHILS % 76.3 % (38.7-80.0); PLATELET COUNT 116 x10e3/uL (140-360); RED BLOOD COUNT 2.49 x10e6/uL (4.3-5.7)
[2020-04-04] MEDS: PANTOPRAZOLE SODIUM 40 MG SUSPDR.PKT PO SCH ×2 (07:30→21:31)
[2020-04-04 08:00] VITALS: BP 111/33
[2020-04-04] MEDS: SEVELAMER CARBONATE 800 MG TAB PO SCH ×3 (08:00→16:35)
[2020-04-04] MEDS: OCTREOTIDE ACETATE 0.1 MG/ML 100MCG AMP SQ SCH ×2 (09:00→21:31)
[2020-04-04] MEDS: ALLOPURINOL 100 MG TAB PEG SCH (09:00)
[2020-04-04] MEDS: METOPROLOL TARTRATE 25 MG TAB PEG SCH ×2 (09:00→16:35)
[2020-04-04] MEDS: ARTIFICIAL TEARS (OPTH) 15 ML BTL OU SCH ×3 (09:00→17:00)
[2020-04-04] MEDS: SERTRALINE HCL 100 MG TAB PEG SCH (09:00)
[2020-04-04] MEDS: AMIODARONE HCL 200 MG TAB PEG SCH (09:00)
[2020-04-04] MEDS: AMLODIPINE BESYLATE 10 MG TAB PEG SCH (09:00)
[2020-04-04] MEDS: CYANOCOBALAMIN 1,000 MCG TAB PEG SCH (09:00)
[2020-04-04 09:46] LABS: BASOPHILS # (AUTO) 0.1 (0.0-0.1); BASOPHILS % 0.7 % (0.0-1.0); EOSINOPHILS # (AUTO) 0.6 (0.0-0.4); EOSINOPHILS % 9.3 % (0.0-6.0); HEMATOCRIT 23.8 % (38.2-49.6); HEMOGLOBIN 7.5 g/dL (14.0-18.0); LYMPHOCYTES # (AUTO) 0.4 (1.0-3.2); LYMPHOCYTES % 6.2 % (18.0-39.1); MEAN CORPUSCULAR HEMOGLOBIN 30.1 pg (28-32); MEAN CORPUSCULAR HGB CONC 31.5 g/dL (31-35); MEAN CORPUSCULAR VOLUME 95.6 fL (81-99); MONOCYTES # (AUTO) 0.5 (0.2-0.8); MONOCYTES % 7.2 % (4.4-11.3); NEUTROPHILS # (AUTO) 5.3 (2.1-6.9); NEUTROPHILS % 76.2 % (38.7-80.0); PLATELET COUNT 135 x10e3/uL (140-360); RED BLOOD COUNT 2.49 x10e6/uL (4.3-5.7); RED CELL DISTRIBUTION WIDTH 17.1 % (11.7-14.4)
[2020-04-04 12:00] VITALS: BP 94/33
[2020-04-04 14:06] LABS: BASOPHILS # (AUTO) 0.1 (0.0-0.1); BASOPHILS % 0.7 % (0.0-1.0); EOSINOPHILS # (AUTO) 0.6 (0.0-0.4); EOSINOPHILS % 8.7 % (0.0-6.0); HEMOGLOBIN 7.4 g/dL (14.0-18.0); LYMPHOCYTES # (AUTO) 0.4 (1.0-3.2); LYMPHOCYTES % 6.4 % (18.0-39.1); MEAN CORPUSCULAR HEMOGLOBIN 30.3 pg (28-32); MEAN CORPUSCULAR HGB CONC 32.2 g/dL (31-35); MEAN CORPUSCULAR VOLUME 94.3 fL (81-99); MONOCYTES # (AUTO) 0.4 (0.2-0.8); MONOCYTES % 6.3 % (4.4-11.3); NEUTROPHILS # (AUTO) 5.3 (2.1-6.9); NEUTROPHILS % 77.3 % (38.7-80.0); PLATELET COUNT 130 x10e3/uL (140-360); RED BLOOD COUNT 2.44 x10e6/uL (4.3-5.7); RED CELL DISTRIBUTION WIDTH 17.2 % (11.7-14.4)
[2020-04-04 16:00] VITALS: BP 89/31
[2020-04-04] MEDS: CEFEPIME 1GM/NS 0.9% 50 ML 50 ML IV SCH (16:00)
[2020-04-04 20:00] VITALS: BP 86/40
[2020-04-04] MEDS: ATORVASTATIN 20 MG TAB PEG SCH (21:31)
[2020-04-05] VITALS (9 sets, daily range): BP systolic 95–132; BP diastolic 25–54
[2020-04-05] MEDS: ONDANSETRON HCL INJ 2MG/ML 2ML 2 MG/ML VIAL IV SCH ×4 (01:29→16:53)
[2020-04-05] MEDS: ALBUTEROL/IPRATROPIUM 3 ML NEB NEB SCH ×6 (02:57→23:10)
[2020-04-05 03:06] LABS: BASOPHILS # (AUTO) 0.1 (0.0-0.1); BASOPHILS % 0.6 % (0.0-1.0); EOSINOPHILS # (AUTO) 0.7 (0.0-0.4); EOSINOPHILS % 8.6 % (0.0-6.0); LYMPHOCYTES # (AUTO) 0.4 (1.0-3.2); LYMPHOCYTES % 5.5 % (18.0-39.1); MEAN CORPUSCULAR HGB CONC 31.4 g/dL (31-35); MEAN CORPUSCULAR VOLUME 95.8 fL (81-99); MONOCYTES # (AUTO) 0.5 (0.2-0.8); MONOCYTES % 6.6 % (4.4-11.3); NEUTROPHILS % 78.2 % (38.7-80.0); PLATELET COUNT 63 x10e3/uL (140-360); RED BLOOD COUNT 2.13 x10e6/uL (4.3-5.7); RED CELL DISTRIBUTION WIDTH 17.3 % (11.7-14.4)
[2020-04-05 03:09] LABS: HEMATOCRIT 20.4 % (38.2-49.6); HEMOGLOBIN 6.4 g/dL (14.0-18.0)
[2020-04-05] MEDS ORDERED: SODIUM CHLORIDE 0.9% 250ML 250 ML IV ONE (03:30)
[2020-04-05] MEDS: AMIODARONE HCL 200 MG TAB PEG SCH (09:00)
[2020-04-05] MEDS: ARTIFICIAL TEARS (OPTH) 15 ML BTL OU SCH ×2 (09:15→16:53)
[2020-04-05 10:44] LABS: ANION GAP 15.1 mmol/L (8-16); CALCIUM 7.7 mg/dL (8.4-10.2); CREATININE, SERUM 4.19 mg/dL (0.72-1.25); POTASSIUM 5.1 mmol/L (3.5-5.1)
[2020-04-05] MEDS: MIDODRINE HCL 5 MG TABLET PEG SCH ×3 (11:28→21:04)
[2020-04-05] MEDS: SEVELAMER CARBONATE 800 MG TAB PO SCH ×3 (12:00→16:53)
[2020-04-05] MEDS ORDERED: SODIUM CHLORIDE 0.9% 250ML 250 ML ONE (12:23)
[2020-04-05] MEDS ORDERED: MIDODRINE HCL 5 MG TABLET PEG SCH (14:00)
[2020-04-05] MEDS: PANTOPRAZOLE SODIUM 40 MG SUSPDR.PKT PO SCH ×2 (15:47→20:32)
[2020-04-05] MEDS: CYANOCOBALAMIN 1,000 MCG TAB PEG SCH (15:48)
[2020-04-05] MEDS: SERTRALINE HCL 100 MG TAB PEG SCH (15:48)
[2020-04-05] MEDS: ALLOPURINOL 100 MG TAB PEG SCH (15:48)
[2020-04-05] MEDS: OCTREOTIDE ACETATE 0.1 MG/ML 100MCG AMP SQ SCH ×2 (15:49→20:32)
[2020-04-05] MEDS: CEFEPIME 1GM/NS 0.9% 50 ML 50 ML IV SCH (15:51)
[2020-04-05] MEDS: EPOETIN ALFA-EPBX 10,000 UNIT/ML VIAL SC SCH (16:53)
[2020-04-05] MEDS: SCOPOLAMINE 1.5 MG PATCH TOP SCH (18:06)
[2020-04-05] MEDS: ATORVASTATIN 20 MG TAB PEG SCH (20:32)
[2020-04-05 21:25] LABS: BASOPHILS % 0.6 % (0.0-1.0); EOSINOPHILS # (AUTO) 0.7 (0.0-0.4); EOSINOPHILS % 10.6 % (0.0-6.0); LYMPHOCYTES # (AUTO) 0.5 (1.0-3.2); LYMPHOCYTES % 6.5 % (18.0-39.1); MEAN CORPUSCULAR HGB CONC 31.9 g/dL (31-35); MEAN CORPUSCULAR VOLUME 94.2 fL (81-99); MONOCYTES # (AUTO) 0.5 (0.2-0.8); MONOCYTES % 6.9 % (4.4-11.3); NEUTROPHILS # (AUTO) 5.2 (2.1-6.9); PLATELET COUNT 118 x10e3/uL (140-360); RED BLOOD COUNT 2.23 x10e6/uL (4.3-5.7); RED CELL DISTRIBUTION WIDTH 16.3 % (11.7-14.4)
[2020-04-05 21:31] LABS: HEMOGLOBIN 6.7 g/dL (14.0-18.0)
[2020-04-05 22:03] LABS: HYPOCHROMASIA SLIGHT; PLATELET ESTIMATE SLIGHTLY DECREASED; PLATELET MORPHOLOGY COMMENT NORMAL
[2020-04-05 22:04] LABS: ANISOCYTOSIS SLIGHT
[2020-04-06] VITALS (11 sets, daily range): BP systolic 74–128; BP diastolic 33–46
[2020-04-06] MEDS: ONDANSETRON HCL INJ 2MG/ML 2ML 2 MG/ML VIAL IV SCH ×4 (00:05→17:54)
[2020-04-06] MEDS: ALBUTEROL/IPRATROPIUM 3 ML NEB NEB SCH ×6 (04:25→23:45)
[2020-04-06] MEDS ORDERED: SODIUM CHLORIDE 0.9% 250ML 250 ML ONE (05:26)
[2020-04-06] MEDS: MIDODRINE HCL 5 MG TABLET PEG SCH ×3 (05:32→20:30)
[2020-04-06] MEDS: SEVELAMER CARBONATE 800 MG TAB PO SCH ×3 (08:00→17:00)
[2020-04-06] MEDS: AMIODARONE HCL 200 MG TAB PEG SCH (09:00)
[2020-04-06] MEDS: ARTIFICIAL TEARS (OPTH) 15 ML BTL OU SCH ×2 (11:22→17:54)
[2020-04-06] MEDS: SERTRALINE HCL 100 MG TAB PEG SCH (11:22)
[2020-04-06] MEDS: PANTOPRAZOLE SODIUM 40 MG SUSPDR.PKT PO SCH ×2 (11:22→19:30)
[2020-04-06] MEDS: OCTREOTIDE ACETATE 0.1 MG/ML 100MCG AMP SQ SCH ×2 (11:22→22:49)
[2020-04-06] MEDS: ALLOPURINOL 100 MG TAB PEG SCH (11:22)
[2020-04-06] MEDS: CYANOCOBALAMIN 1,000 MCG TAB PEG SCH (11:22)
[2020-04-06 14:39] LABS: BASOPHILS % 0.4 % (0.0-1.0); EOSINOPHILS # (AUTO) 0.4 (0.0-0.4); EOSINOPHILS % 4.9 % (0.0-6.0); LYMPHOCYTES # (AUTO) 0.6 (1.0-3.2); LYMPHOCYTES % 7.5 % (18.0-39.1); MEAN CORPUSCULAR HEMOGLOBIN 29.8 pg (28-32); MEAN CORPUSCULAR HGB CONC 31.6 g/dL (31-35); MONOCYTES # (AUTO) 0.6 (0.2-0.8); NEUTROPHILS # (AUTO) 6.5 (2.1-6.9); NEUTROPHILS % 79.5 % (38.7-80.0); PLATELET COUNT 124 x10e3/uL (140-360); RED BLOOD COUNT 1.68 x10e6/uL (4.3-5.7); RED CELL DISTRIBUTION WIDTH 16.8 % (11.7-14.4)
[2020-04-06 14:42] LABS: HEMATOCRIT 15.8 % (38.2-49.6)
[2020-04-06 15:05] LABS: EOSINOPHILS % (MANUAL) 5 % (0-7); LYMPHOCYTES % (MANUAL) 4 % (19-48); MONOCYTES % (MANUAL) 4 % (3.4-9.0); NEUTROPHILS % (MANUAL) 87 % (40-74); PLATELET ESTIMATE SLIGHTLY DECREASED; PLATELET MORPHOLOGY COMMENT NORMAL; RBC MORPHOLOGY COMMENT NORMAL
[2020-04-06] MEDS ORDERED: SODIUM CHLORIDE 0.9% 250ML 250 ML IV ONE ×2 (15:15→16:00)
[2020-04-06] MEDS ORDERED: PEG (High)/E-LYTE SOLN 4,000 ML BTL PO ONE (16:00)
[2020-04-06] MEDS: CEFEPIME 1GM/NS 0.9% 50 ML 50 ML IV SCH (16:37)
[2020-04-06] MEDS: ATORVASTATIN 20 MG TAB PEG SCH (20:30)
[2020-04-07] VITALS (13 sets, daily range): BP systolic 90–141; BP diastolic 40–65
[2020-04-07] MEDS: ONDANSETRON HCL INJ 2MG/ML 2ML 2 MG/ML VIAL IV SCH ×4 (05:13→17:37)
[2020-04-07] MEDS: MIDODRINE HCL 5 MG TABLET PEG SCH ×3 (05:13→23:43)
[2020-04-07 06:26] LABS: INR 1.16; PROTHROMBIN TIME 15.6 seconds (11.9-14.5)
[2020-04-07 06:27] LABS: PARTIAL THROMBOPLASTIN TIME 31.4 seconds (23.8-35.5)
[2020-04-07 06:48] LABS: ANION GAP 13.3 mmol/L (8-16); CALCIUM 7.4 mg/dL (8.4-10.2); CREATININE, SERUM 3.3 mg/dL (0.72-1.25); POTASSIUM 4.3 mmol/L (3.5-5.1)
[2020-04-07 06:55] LABS: BASOPHILS # (AUTO) 0.1 (0.0-0.1); BASOPHILS % 0.8 % (0.0-1.0); EOSINOPHILS # (AUTO) 0.6 (0.0-0.4); EOSINOPHILS % 8.7 % (0.0-6.0); HEMATOCRIT 20.3 % (38.2-49.6); LYMPHOCYTES # (AUTO) 0.6 (1.0-3.2); LYMPHOCYTES % 8.3 % (18.0-39.1); MEAN CORPUSCULAR HEMOGLOBIN 30.1 pg (28-32); MEAN CORPUSCULAR HGB CONC 32.5 g/dL (31-35); MEAN CORPUSCULAR VOLUME 92.7 fL (81-99); MONOCYTES # (AUTO) 0.5 (0.2-0.8); MONOCYTES % 6.5 % (4.4-11.3); NEUTROPHILS # (AUTO) 5.5 (2.1-6.9); NEUTROPHILS % 74.9 % (38.7-80.0); PLATELET COUNT 108 x10e3/uL (140-360); RED BLOOD COUNT 2.19 x10e6/uL (4.3-5.7); RED CELL DISTRIBUTION WIDTH 16.6 % (11.7-14.4)
[2020-04-07 06:58] LABS: HEMOGLOBIN 6.6 g/dL (14.0-18.0)
[2020-04-07] MEDS: ALBUTEROL/IPRATROPIUM 3 ML NEB NEB SCH ×5 (07:35→19:59)
[2020-04-07] MEDS: SEVELAMER CARBONATE 800 MG TAB PO SCH ×3 (08:00→17:24)
[2020-04-07] MEDS: ARTIFICIAL TEARS (OPTH) 15 ML BTL OU SCH ×2 (08:28→17:24)
[2020-04-07] MEDS ORDERED: EPINEPHRINE HCL 1:1000 1ML 1 MG/ML AMP ONE (09:18)
[2020-04-07] MEDS: OCTREOTIDE ACETATE 0.1 MG/ML 100MCG AMP SQ SCH ×2 (11:27→23:43)
[2020-04-07] MEDS: SERTRALINE HCL 100 MG TAB PEG SCH (11:27)
[2020-04-07] MEDS: CYANOCOBALAMIN 1,000 MCG TAB PEG SCH (11:27)
[2020-04-07] MEDS: AMIODARONE HCL 200 MG TAB PEG SCH (11:27)
[2020-04-07] MEDS: ALLOPURINOL 100 MG TAB PEG SCH (11:27)
[2020-04-07] MEDS: PANTOPRAZOLE SODIUM 40 MG SUSPDR.PKT PO SCH (11:27)
[2020-04-07] MEDS ORDERED: ACETAMINOPHEN 325 MG TAB PO STA (12:19)
[2020-04-07] MEDS ORDERED: SODIUM CHLORIDE 0.9% 250ML 250 ML IV ONE (12:30)
[2020-04-07] MEDS ORDERED: PROPOFOL IV EMULSION 10 MG/ML 20 ML VIAL ONE (12:33)
[2020-04-07] MEDS ORDERED: LIDOCAINE HCL 2% LOCAL INJ 5 ML SDV VIAL INJ ONE (12:33)
[2020-04-07] MEDS ORDERED: MIDAZOLAM HCL 2 MG/2 ML VIAL ONE (13:07)
[2020-04-07] MEDS: CEFEPIME 1GM/NS 0.9% 50 ML 50 ML IV SCH (17:24)
[2020-04-07] MEDS: ATORVASTATIN 20 MG TAB PEG SCH (23:43)
[2020-04-08] VITALS (12 sets, daily range): BP systolic 121–162; BP diastolic 37–69
[2020-04-08] MEDS: PANTOPRAZOLE SODIUM 40 MG SUSPDR.PKT PO SCH ×3 (00:02→21:21)
[2020-04-08] MEDS: ONDANSETRON HCL INJ 2MG/ML 2ML 2 MG/ML VIAL IV SCH ×3 (00:03→12:24)
[2020-04-08] MEDS: ALBUTEROL/IPRATROPIUM 3 ML NEB NEB SCH ×7 (01:35→23:00)
[2020-04-08 04:29] LABS: BASOPHILS # (AUTO) 0.1 (0.0-0.1); BASOPHILS % 1.1 % (0.0-1.0); EOSINOPHILS # (AUTO) 0.4 (0.0-0.4); EOSINOPHILS % 5.8 % (0.0-6.0); HEMATOCRIT 25.9 % (38.2-49.6); HEMOGLOBIN 8.4 g/dL (14.0-18.0); LYMPHOCYTES # (AUTO) 0.4 (1.0-3.2); LYMPHOCYTES % 5.3 % (18.0-39.1); MEAN CORPUSCULAR HEMOGLOBIN 29.7 pg (28-32); MEAN CORPUSCULAR HGB CONC 32.4 g/dL (31-35); MEAN CORPUSCULAR VOLUME 91.5 fL (81-99); MONOCYTES # (AUTO) 0.4 (0.2-0.8); MONOCYTES % 6.2 % (4.4-11.3); NEUTROPHILS # (AUTO) 5.3 (2.1-6.9); PLATELET COUNT 137 x10e3/uL (140-360); RED BLOOD COUNT 2.83 x10e6/uL (4.3-5.7); RED CELL DISTRIBUTION WIDTH 17.1 % (11.7-14.4)
[2020-04-08] MEDS: MIDODRINE HCL 5 MG TABLET PEG SCH ×3 (07:22→22:00)
[2020-04-08] MEDS: SEVELAMER CARBONATE 800 MG TAB PO SCH ×3 (08:00→16:37)
[2020-04-08] MEDS: SERTRALINE HCL 100 MG TAB PEG SCH (08:19)
[2020-04-08] MEDS: AMIODARONE HCL 200 MG TAB PEG SCH (08:19)
[2020-04-08] MEDS: ARTIFICIAL TEARS (OPTH) 15 ML BTL OU SCH ×2 (08:19→16:37)
[2020-04-08] MEDS: CYANOCOBALAMIN 1,000 MCG TAB PEG SCH (08:19)
[2020-04-08] MEDS: ALLOPURINOL 100 MG TAB PEG SCH (08:19)
[2020-04-08] MEDS: OCTREOTIDE ACETATE 0.1 MG/ML 100MCG AMP SQ SCH ×2 (08:19→21:21)
[2020-04-08] MEDS: SCOPOLAMINE 1.5 MG PATCH TOP SCH (10:55)
[2020-04-08] MEDS ORDERED: ONDANSETRON HCL INJ 2MG/ML 2ML 2 MG/ML VIAL IV PRN (14:45)
[2020-04-08] MEDS: EPOETIN ALFA-EPBX 10,000 UNIT/ML VIAL SC SCH (16:45)
[2020-04-08] MEDS: ATORVASTATIN 20 MG TAB PEG SCH (21:21)
[2020-04-09] VITALS (8 sets, daily range): BP systolic 129–163; BP diastolic 43–67
[2020-04-09] MEDS: ALBUTEROL/IPRATROPIUM 3 ML NEB NEB SCH ×6 (00:05→19:00)
[2020-04-09] MEDS: MIDODRINE HCL 5 MG TABLET PEG SCH ×3 (06:00→20:59)
[2020-04-09] MEDS: SEVELAMER CARBONATE 800 MG TAB PO SCH ×3 (08:00→16:40)
[2020-04-09] MEDS: ARTIFICIAL TEARS (OPTH) 15 ML BTL OU SCH ×2 (10:00→16:39)
[2020-04-09] MEDS: OCTREOTIDE ACETATE 0.1 MG/ML 100MCG AMP SQ SCH ×2 (10:00→20:56)
[2020-04-09] MEDS: SERTRALINE HCL 100 MG TAB PEG SCH (10:00)
[2020-04-09] MEDS: PANTOPRAZOLE SODIUM 40 MG SUSPDR.PKT PO SCH ×2 (10:00→20:55)
[2020-04-09] MEDS: CYANOCOBALAMIN 1,000 MCG TAB PEG SCH (10:00)
[2020-04-09] MEDS: ALLOPURINOL 100 MG TAB PEG SCH (10:00)
[2020-04-09] MEDS: AMIODARONE HCL 200 MG TAB PEG SCH (10:00)
[2020-04-09] MEDS: ATORVASTATIN 20 MG TAB PEG SCH (20:55)
[2020-04-10] VITALS (8 sets, daily range): BP systolic 156–172; BP diastolic 54–74
[2020-04-10] MEDS: ALBUTEROL/IPRATROPIUM 3 ML NEB NEB SCH ×6 (00:10→19:40)
[2020-04-10] MEDS: MIDODRINE HCL 5 MG TABLET PEG SCH (06:00)
[2020-04-10 06:24] LABS: BASOPHILS # (AUTO) 0.1 (0.0-0.1); BASOPHILS % 0.7 % (0.0-1.0); EOSINOPHILS # (AUTO) 0.6 (0.0-0.4); EOSINOPHILS % 8.4 % (0.0-6.0); HEMATOCRIT 25.5 % (38.2-49.6); HEMOGLOBIN 8.4 g/dL (14.0-18.0); LYMPHOCYTES # (AUTO) 0.4 (1.0-3.2); LYMPHOCYTES % 5.6 % (18.0-39.1); MEAN CORPUSCULAR HEMOGLOBIN 30.8 pg (28-32); MEAN CORPUSCULAR HGB CONC 32.9 g/dL (31-35); MEAN CORPUSCULAR VOLUME 93.4 fL (81-99); MONOCYTES # (AUTO) 0.5 (0.2-0.8); MONOCYTES % 6.3 % (4.4-11.3); NEUTROPHILS # (AUTO) 5.6 (2.1-6.9); NEUTROPHILS % 78.2 % (38.7-80.0); PLATELET COUNT 162 x10e3/uL (140-360); RED BLOOD COUNT 2.73 x10e6/uL (4.3-5.7)
[2020-04-10] MEDS: ARTIFICIAL TEARS (OPTH) 15 ML BTL OU SCH ×3 (09:00→16:02)
[2020-04-10] MEDS: PANTOPRAZOLE SODIUM 40 MG SUSPDR.PKT PO SCH ×2 (09:42→21:48)
[2020-04-10] MEDS: SEVELAMER CARBONATE 800 MG TAB PO SCH ×3 (09:42→16:31)
[2020-04-10] MEDS: OCTREOTIDE ACETATE 0.1 MG/ML 100MCG AMP SQ SCH ×2 (09:43→21:48)
[2020-04-10] MEDS: SERTRALINE HCL 100 MG TAB PEG SCH (09:43)
[2020-04-10] MEDS: CYANOCOBALAMIN 1,000 MCG TAB PEG SCH (09:43)
[2020-04-10] MEDS: AMIODARONE HCL 200 MG TAB PEG SCH (09:43)
[2020-04-10] MEDS: ALLOPURINOL 100 MG TAB PEG SCH (09:43)
[2020-04-10] MEDS ORDERED: AMLODIPINE BESYLATE 5 MG TAB PO SCH (14:30)
[2020-04-10] MEDS ORDERED: HYDRALAZINE HCL 10 MG TAB PO PRN (14:45)
[2020-04-10] MEDS ORDERED: HYDRALAZINE HCL 20 MG/ML VIAL IV PRN (14:45)
[2020-04-10] MEDS: EPOETIN ALFA-EPBX 10,000 UNIT/ML VIAL SC SCH (16:31)
[2020-04-10] MEDS: ATORVASTATIN 20 MG TAB PEG SCH (21:48)
[2020-04-11] VITALS: BP 158/62
[2020-04-11] MEDS: ALBUTEROL/IPRATROPIUM 3 ML NEB NEB SCH ×4 (03:20→14:28)
[2020-04-11 04:00] VITALS: BP 143/62
[2020-04-11] MEDS: PANTOPRAZOLE SODIUM 40 MG SUSPDR.PKT PO SCH (07:30)
[2020-04-11] MEDS: SEVELAMER CARBONATE 800 MG TAB PO SCH ×3 (08:00→15:58)
[2020-04-11 09:00] VITALS: BP 143/62
[2020-04-11] MEDS ORDERED: AMLODIPINE BESYLATE 10 MG TAB PO SCH (09:00)
[2020-04-11] MEDS: SERTRALINE HCL 100 MG TAB PEG SCH (09:00)
[2020-04-11] MEDS: ARTIFICIAL TEARS (OPTH) 15 ML BTL OU SCH ×2 (09:00→15:58)
[2020-04-11] MEDS: CYANOCOBALAMIN 1,000 MCG TAB PEG SCH (09:00)
[2020-04-11] MEDS: ALLOPURINOL 100 MG TAB PEG SCH (09:00)
[2020-04-11] MEDS: OCTREOTIDE ACETATE 0.1 MG/ML 100MCG AMP SQ SCH (09:00)
[2020-04-11] MEDS: AMIODARONE HCL 200 MG TAB PEG SCH (09:00)
[2020-04-11 09:05] VITALS: BP 160/62
[2020-04-11] MEDS: SCOPOLAMINE 1.5 MG PATCH TOP SCH (10:00)
[2020-04-11 12:10] VITALS: BP 148/39
[2020-04-11 16:14] VITALS: BP 142/44
== END 2020-04-11 18:37 | DRG 356 ==
LOC: MED/SURG2 03-21 01:24 → IMCU 04-06 20:00 → MED/SURG2 04-09 18:05
PROVIDERS: ADMIT Internal Medicine; ATTEND Internal Medicine
PROC: 5A1D70Z Performance of Urinary Filtration, Intermittent, Less than 6 Hours Per Day (ICD-10-PCS; 2020-03-21)
PROC: 30233N1 Transfusion of Nonautologous Red Blood Cells into Peripheral Vein, Percutaneous Approach (ICD-10-PCS; 2020-03-21)
PROC: 5A1D70Z Performance of Urinary Filtration, Intermittent, Less than 6 Hours Per Day (ICD-10-PCS; 2020-03-24)
PROC: 0DBN8ZZ Excision of Sigmoid Colon, Via Natural or Artificial Opening Endoscopic (ICD-10-PCS; 2020-03-24)
PROC: 0DBL8ZZ Excision of Transverse Colon, Via Natural or Artificial Opening Endoscopic (ICD-10-PCS; 2020-03-24)
PROC: 5A1D70Z Performance of Urinary Filtration, Intermittent, Less than 6 Hours Per Day (ICD-10-PCS; 2020-03-25)
PROC: 30233N1 Transfusion of Nonautologous Red Blood Cells into Peripheral Vein, Percutaneous Approach (ICD-10-PCS; 2020-03-25)
PROC: 5A1D70Z Performance of Urinary Filtration, Intermittent, Less than 6 Hours Per Day (ICD-10-PCS; 2020-03-27)
PROC: 5A1D70Z Performance of Urinary Filtration, Intermittent, Less than 6 Hours Per Day (ICD-10-PCS; 2020-03-29)
PROC: 5A1D70Z Performance of Urinary Filtration, Intermittent, Less than 6 Hours Per Day (ICD-10-PCS; 2020-03-31)
PROC: 5A1D70Z Performance of Urinary Filtration, Intermittent, Less than 6 Hours Per Day (ICD-10-PCS; 2020-04-02)
PROC: 30233N1 Transfusion of Nonautologous Red Blood Cells into Peripheral Vein, Percutaneous Approach (ICD-10-PCS; 2020-04-02)
PROC: 04L33DZ Occlusion of Hepatic Artery with Intraluminal Device, Percutaneous Approach (ICD-10-PCS; principal; 2020-04-03)
PROC: 30233N1 Transfusion of Nonautologous Red Blood Cells into Peripheral Vein, Percutaneous Approach (ICD-10-PCS; 2020-04-03)
PROC: 5A1D70Z Performance of Urinary Filtration, Intermittent, Less than 6 Hours Per Day (ICD-10-PCS; 2020-04-05)
PROC: 30233N1 Transfusion of Nonautologous Red Blood Cells into Peripheral Vein, Percutaneous Approach (ICD-10-PCS; 2020-04-05)
PROC: 30233N1 Transfusion of Nonautologous Red Blood Cells into Peripheral Vein, Percutaneous Approach (ICD-10-PCS; 2020-04-06)
PROC: 5A1D70Z Performance of Urinary Filtration, Intermittent, Less than 6 Hours Per Day (ICD-10-PCS; 2020-04-07)
PROC: 0DB88ZX Excision of Small Intestine, Via Natural or Artificial Opening Endoscopic, Diagnostic (ICD-10-PCS; 2020-04-07)
PROC: 0DBK8ZX Excision of Ascending Colon, Via Natural or Artificial Opening Endoscopic, Diagnostic (ICD-10-PCS; 2020-04-07)
PROC: 0DBL8ZX Excision of Transverse Colon, Via Natural or Artificial Opening Endoscopic, Diagnostic (ICD-10-PCS; 2020-04-07)
PROC: 3E0H8GC Introduction of Other Therapeutic Substance into Lower GI, Via Natural or Artificial Opening Endoscopic (ICD-10-PCS; 2020-04-07)
PROC: 0W3P8ZZ Control Bleeding in Gastrointestinal Tract, Via Natural or Artificial Opening Endoscopic (ICD-10-PCS; 2020-04-07)
PROC: 5A1D70Z Performance of Urinary Filtration, Intermittent, Less than 6 Hours Per Day (ICD-10-PCS; 2020-04-09)
PROC: 5A1D70Z Performance of Urinary Filtration, Intermittent, Less than 6 Hours Per Day (ICD-10-PCS; 2020-04-11)
DX: K63.3 Ulcer of intestine (principal); K29.01 Acute gastritis with bleeding; N18.6 End stage renal disease; I50.33 Acute on chronic diastolic (congestive) heart failure; J15.6 Pneumonia due to other Gram-negative bacteria; J96.10 Chronic respiratory failure, unspecified whether with hypoxia or hypercapnia; J44.1 Chronic obstructive pulmonary disease with (acute) exacerbation; I13.2 Hypertensive heart and chronic kidney disease with heart failure and with stage 5 chronic kidney disease, or end stage renal disease; D62 Acute posthemorrhagic anemia; K91.89 Other postprocedural complications and disorders of digestive system; K91.840 Postprocedural hemorrhage of a digestive system organ or structure following a digestive system procedure; E11.22 Type 2 diabetes mellitus with diabetic chronic kidney disease; E78.5 Hyperlipidemia, unspecified; Z99.2 Dependence on renal dialysis; I25.10 Atherosclerotic heart disease of native coronary artery without angina pectoris; E11.21 Type 2 diabetes mellitus with diabetic nephropathy; I25.2 Old myocardial infarction; Z95.5 Presence of coronary angioplasty implant and graft; Z88.0 Allergy status to penicillin; Z91.018 Allergy to other foods; Z93.1 Gastrostomy status; Z93.0 Tracheostomy status; D12.2 Benign neoplasm of ascending colon; D12.5 Benign neoplasm of sigmoid colon; D12.3 Benign neoplasm of transverse colon; K64.8 Other hemorrhoids; K29.00 Acute gastritis without bleeding; K44.9 Diaphragmatic hernia without obstruction or gangrene; E83.39 Other disorders of phosphorus metabolism
CPT/HCPCS: 31720; 36415; 43239; 45378; 45385; 71045; 74174; 80048; 80053; 82948; 84100; 85014; 85018; 85025; 85610; 85730; 86706; 86850; 86900; 86920; 87070; 87205; 87340; 88305; 88312; 90962; 93005; 93306; 94640; 94664; 99251; C1769; C1887; J0171; J0692; J1940; J2001; J2150; J2250; J2354; J2405; J7030; J7040; J7050; P9016; Q9967; U0002